=== PATIENT | male | born 1995 | race Caucasian/White ===

== ENCOUNTER 2022-08-22 16:45 | Emergency (ER) | payer OTHER, SELFPAY ==
[2022-08-22 17:00] VITALS: BP 162/83; PULSE 72; RESP 12; TEMP 37.2; O2SAT 99
--- NOTE | 2022-08-22 17:19 | DI.RAD.S_ITS ---
PROCEDURE: XR CHEST 2V INDICATIONS: Possible aspiration of tooth TECHNIQUE: 2 views of the chest were acquired. COMPARISON: None. FINDINGS: Surgical changes and devices: None. Lungs and pleura: In this patient with this given history, scrutiny is given to an aspirated tooth fragment. None can be seen. Lungs are clear. No pleural effusions or pneumothorax. Mediastinum: Mediastinal contours are normal. Heart size is normal. Bones and chest wall: No suspicious bony abnormalities. Soft tissues appear unremarkable. IMPRESSION: Unremarkable plain films, without an aspirated tooth fragment seen. Dictated by: Aiden Virgen M.D. on 08/22/2022 at 16:36 Approved by: Aiden Virgen M.D. on 08/22/2022 at 16:37
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
[2022-08-22] MEDS: LIDOCAINE 2% INJ SDV 5 ML INJ (18:13)
[2022-08-22 18:30] VITALS: BP 123/65; PULSE 67; RESP 20; TEMP 36.8; O2SAT 97
== END 2022-08-22 18:31 | disposition home or self-care (01) ==
PROVIDERS: Emergency Provider Physician Assistant
DX: S01.511A Laceration without foreign body of lip, initial encounter (principal); K08.409 Partial loss of teeth, unspecified cause, unspecified class; V19.9XXA Pedal cyclist (driver) (passenger) injured in unspecified traffic accident, initial encounter
CPT/HCPCS: 12011; 71046; 99283